=== PATIENT | female | born 1990 | race Caucasian/White ===

== ENCOUNTER 2017-01-21 06:54 | Emergency (ER) | payer OTHER ==
[~2017-01-21] VITALS: Ht 167.6 cm; Wt 77.2 kg
[~2017-01-21 06:54] MED LIST: ACET-765 PO; ALBU2.5V7 AEROSOL; ALBU8.5H INH; AMIT50TA3 PO; MOME13HF3 INH
[2017-01-21 06:57] VITALS: TEMP 98.1; Ht 167.6 cm; Wt 77.2 kg
[2017-01-21] MEDS ORDERED: NORMAL SALINE 1,000 ML IV ONE (07:11)
--- NOTE | 2017-01-21 07:11 | ERPDOC ---
Departure Disposition Decision Date: Jan 21, 2017 Disposition Decision Time: 08:00 Disposition: 01 DISCHARGED HOME, SELF-CARE Impression Impression Impression: Primary Impression: Migraine headache without aura Severity: Moderate Condition: Improved Seen By: Physician only Referrals: KEIRA RAMESH (Family) Patient Instructions: Migraine Headache (ED) Problems/Meds/Labs Reviewed?: Yes Medications reviewed and manag: Yes Additional Instructions: Increase fluids today to hydrate. Please follow up with your primary care provider. Follow up care ordered?: Yes Mental Status: Alert, Oriented HPI - Headache General Chief Complaint: Headache Stated Complaint: MIGRAINE Time Seen by Provider: 07:02 HPI - Headache Initial Comments 26-year-old female presents with the worst headache of her life. Pain is 10 out of 10. She's had this for a couple of days now, she was given Toradol and Phenergan in the clinic which did not work for her. She states that she has had medications here before that don't work and she would like to try something different. She recently switched primary care providers to Dr. Fernando. She states she has severe nausea right now. And that light hurts her eyes. Allergies: Coded Allergies: No Known Allergies (Unverified , 01/21/17) Past History Past Medical History ENMT: sinusitis Respiratory: asthma GI: GERD Female: UTI Neurological: headaches, migraines Psychological: anxiety, depression Surgical History Reproductive/: , hysterectomy, tubal ligation Joint: knee Family History Family PMH: FOUND: CAD, cancer, diabetes, migraines Vaccines Hx Influenza Vaccination: No Hx Pneumococcal Vaccination: No Hx Tetanus Diptheria: Yes (2002) Hx Tetanus, Diptheria, Pertuss: Yes (11/14/13) Social History Substance Use Type: does not use Alcohol Intake: none Sexuality: male partner Record Review Pertinent history updated: Yes Review of Systems Constitutional Constitutional: insomnia Eyes General: see HPI Neurological General: see HPI All other Systems All Other Systems: Reviewed and Negative Physical Exam General General Nourishment: well nourished, well developed, appears stated age Distress Description Patient lying in bed with her eyes closed Vitals and Pain First Documented Vital Signs Date Time Temp Pulse Resp B/P Pulse Ox O2 Delivery O2 Flow Rate FiO2 01/21/17 06:57 98.1 76 18 120/59 96 Room Air Weight: Kilograms: 77.200 Height (feet): 5 Height (inches): 6.00 Triage Pain Scale: Normal Exams: Head: Normocephalic w/o trauma Eyes: Pupils are PERRLA w/ EOMI, No scleral icterus, irritation, or foreign bodies noted Chest/Resp: Clear all malhotra, with good airflow, and symmetry bilaterally CV: Regular rate and rhythm, without murmur or gallop, Pulses 2+ all extremities, capillary refill, <2 seconds all ext., no pedal edema noted Neurologic: Patient is alert, and oriented, cranial nerves, motor/sensory/ cerebellar, exams w/o gross deficits, to observation Psychiatric: Patient exhibits, appropriate attention, emotion and affect Differential Diagnoses Considering: CVA - Thrombotic, CVA - Hemorrhagic, Encephalitis, Headache, Headache - Migraine, Headache - Tension/Muscle, Hypertensive Emergency, Meningitis, Sinusitis - Sphenoid, Sinusitis - Maxillary, Temporal Arteritis, Toothache, Vomiting Progress Results/Orders Orders Procedure Category Date Status Time Iv Lock (Ed Only) EDM 01/21/17 Transmitted 07:11 Normal Saline (Normal PHA 01/21/17 Complete Saline Iv) 07:11 Ketorolac (Toradol) PHA 01/21/17 Complete 07:15 Prochlorperazine PHA 01/21/17 Complete (Compazine) 07:15 Orphenadrine (Norflex) PHA 01/21/17 Complete 07:15 Medications Current ED Medications Sodium Chloride (Normal Saline IV) 1,000 ml @ 0 mls/hr Q0M ONCE IV Last administered on 01/21/17 07:30; Start 01/21/17 at 07:11; Stop 01/21/17 at 07:13 ; Status DC Ketorolac Tromethamine (Toradol) 30 mg O ONCE IV Last administered on 07:33; Start 01/21/17 at 07:15; Stop 01/21/17 at 07:16; Status DC Prochlorperazine Edisylate (Compazine) 10 mg O ONCE IV Last administered on 07:33; Start 01/21/17 at 07:15; Stop 01/21/17 at 07:16; Status DC Orphenadrine Citrate (Norflex) 60 mg O ONCE IV Last administered on 01/21/17 07:31; Start 01/21/17 at 07:15; Stop 01/21/17 at 07:16; Status DC Progress Progress Patient given 10 mg of Compazine, 30 mg of Toradol, 60 mg of Norflex IV as well as 1 L of normal saline IV bolus. Symptoms improved. Patient is discharged to follow-up with her primary care provider RAYMUNDO OLIVO MD Jan 21, 2017 07:11
[2017-01-21] MEDS ORDERED: PROCHLORPERAZINE 10mg/2ml INJECTION IV ONE (07:15)
[2017-01-21] MEDS ORDERED: KETOROLAC 30mg/ml INJECTION IV ONE (07:15)
[2017-01-21] MEDS ORDERED: ORPHENADRINE 60mg/2ml INJECTION IV ONE (07:15)
[2017-01-21 08:15] VITALS: BP 93/51; PULSE 82; RESP 16; O2SAT 100
== END 2017-01-21 08:18 | disposition home or self-care (01) ==
LOC: ED 06:54
DX: G43.009 Migraine without aura, not intractable, without status migrainosus (principal)
CPT/HCPCS: 96361; 96374; 96375; 99284; J0780; J1885; J2360; J7030

== ENCOUNTER 2017-01-24 17:53 | Emergency (ER) | payer OTHER ==
[~2017-01-24] VITALS: Ht 167.6 cm; Wt 77.2 kg
--- OUTSIDE RECORDS SUMMARY | 2017-01-24 17:57 | XMS REPORT | Continuity of Care Document ---
Author Author [facility] Organization [facility] Address Unknown Phone Unavailable Support Name Relationship Address Phone DANIE FRIEDMAN MD Caregiver [address] [facility] [place] [address] Unavailable RAYMUNDO OLIVO MD Caregiver [address] [place] [address] Unavailable CARLOS TRUJILLO Next Of Kin [address] [place] [address] Insurance Providers Guarantor Elidia Trujillo Address [address] [place] [id number] Email Payer [employer] Policy Number [id number] Subscriber's Name Carlos Trujillo Relationship 01 Spouse Group Number [id number] Advance Directives Directive Response Recorded Date/Time Advanced Directives Type None 01/30/14 3:06pm Chief Complaint and Reason for Visit Chief Complaint Headache Reason for Visit [id number] Problems Active Problems Medical Problem Onset Date Status Acute gastroenteritis Unknown Acute Acute gastroenteritis Unknown Acute Asthma exacerbation Unknown Acute Biliary colic Unknown Acute Dehydration Unknown Acute Exacerbation of asthma Unknown Acute GERD (gastroesophageal reflux disease) Unknown Acute HEADACHE CONSISTENT WITH MIGRAINE Unknown Acute Head Consistent with Migraine Unknown Acute Head Consistent with Migraine Unknown Acute Hypermotility of intestine Unknown Acute Low back pain Unknown Acute Maxillary sinusitis, acute Unknown Acute Migraine headache Unknown Acute Migraine headache without aura Unknown Acute Migraine headache without aura Unknown Acute Migraine headache without aura Unknown Acute Patient left without being seen Unknown Acute Vomiting Unknown Acute right foot cellulitis Unknown Acute Past Problems Medical Problem Onset Date Abdominal pain Unknown Chronic lower back pain Unknown Diarrhea Unknown Lower back pain Unknown Vomiting Unknown Medications Current Home Medications Medication Dose Units Route Directions Days Qty Instructions Start Date Acetaminophen/Dp-Hydram Hcl (Tylenol P.m. Ex-Str Caplet) 1 Tab Tablet 2 Tab Oral Bedtime as needed for Headache 11/14/13 Albuterol Sulfate 2.5 Mg/3 Ml Vial.neb 2.5 Mg Aerosol Tx. As Needed 11/02/16 Albuterol Sulfate (Proair Hfa 90 Mcg/Actuation) 8.5 Gm Hfa.aer.ad 2 Puff Inhalation Every 4 Hours as needed for Shortness Of Air/Wheezing Amitriptyline Hcl 50 Mg Tablet 100 Mg Oral Bedtime 11/02/16 Mometasone/Formoterol (Dulera 200 Mcg/5 Mcg Inhaler) 13 Gm Hfa.aer.ad 1 Puff Inhalation Twice A Day 11/02/16 Past Home Medications Medication Directions Ordered Status Acetaminophen/Dp-Hydram Hcl (Tylenol P.m. Ex-Str Caplet) 1 Tab Tablet, 2 Tab Oral As Needed 08/26/13 Discontinued Albuterol Sulfate 2.5 Mg/0.5 Ml Vial.neb, As Needed 01/09/12 Discontinued Aripiprazole (Abilify) 5 Mg Tablet, 2.5 Mg Oral Daily 08/25/13 Discontinued Etonogestrel (Implanon) 68 Mg/Implant Implant, 11/30/10 Discontinued Nitrofurantoin/Nitrofuran Mac (Macrobid) 100 Mg Capsule, 100 Mg Oral Twice A Day 01/15/12 Discontinued Ondansetron (Ondansetron Odt) 4 Mg Tab.rapdis, 4 Mg Oral Every 6-8 Hours Prn as needed for Nasal Congestion 10/22/15 Discontinued Penicillin V Potassium 500 Mg Tablet, 500 Mg Oral Three Times A Day 01/15/12 Discontinued Progesterone 50 Mg/Ml Vial, 50 Mg Intramusc Weekly 06/25/12 Discontinued Topiramate (Topamax) 50 Mg Tablet, Daily 07/02/14 Discontinued Topiramate (Topamax) 50 Mg Tablet, 50 Mg Oral Bedtime 08/03/13 Discontinued Vilazodone Hydrochloride (Viibryd) 20 Mg Tablet, 20 Mg Oral Daily 08/25/13 Discontinued Social History Social History Problem Response Recorded Date/Time Onset Date Status Chewing Tobacco Status No 02/26/2014 3:30am Not Applicable Not Applicable Hx Substance Use No 01/21/2017 7:43am Not Applicable Not Applicable Hx Alcohol Use Y OCCASIONAL 01/21/2017 7:43am Not Applicable Not Applicable Has the pt used tobacco in the last 12 months No 08/26/2013 7:58am Not Applicable Not Applicable Tobacco Usage none 07/02/2014 8:57am Not Applicable Not Applicable Query Response Start Date Stop Date Smoking Status Unknown if ever smoked Hospital Discharge Instructions No hospital discharge instructions. Plan of Care Discharge Date 01/21/17 8:18am Disposition 01 DISCHARGED HOME, SELF-CARE Condition at Discharge Improved Instructions/Education Provided Migraine Headache (ED) Prescriptions See Medication Section Referrals KEIRA RAMESH Address: [address] [address] Additional Instructions/Education Increase fluids today to hydrate. Please follow up with your primary care provider. Functional Status No functional status results. Allergies, Adverse Reactions, Alerts No known allergies. Immunizations Query Response on File Recorded Date/Time Hx Influenza Vaccination No 01/24/15 10:33pm Hx Pneumococcal Vaccination No 01/24/15 10:33pm Hx Tetanus, Diptheria, Pertussis Y 11/14/13 01/24/15 10:33pm Hx Influenza Vaccination No 01/24/15 10:33pm Hx Tetanus Diptheria Y 200201/24/15 10:33pm Hx Tetanus, Diptheria, Pertussis Y 11/14/13 01/24/15 10:33pm Influenza Vaccine Hx NOT UP TO DATE 01/21/17 7:43am Vital Signs Acute Vital Signs Vital Response Date/Time Temperature (Fahrenheit) 98.1 deg F (96.8 - 99.1) 01/21/2017 6:57am Temperature (Calculated Celsius) 36.02878 degrees C (36.0 - 37.3) 01/21/2017 6:57am Pulse Rate (adult) 82 bpm (60 - 100) 01/21/2017 8:15am Respiratory Rate 16 breaths/min (10 - 20) 01/21/2017 8:15am O2 Sat by Pulse Oximetry 100 % (90 - 100) 01/21/2017 8:15am Blood Pressure 93/51 mm Hg 01/21/2017 8:15am Height (Feet) 5 feet 01/21/2017 6:57am Height (Inches) 6.00 inches 01/21/2017 6:57am Weight (Kilograms) 77.200 kg 01/21/2017 6:57am Body Mass Index (BMI) 27.0 01/21/2017 6:57am Results No known relevant diagnostic tests, laboratory data and/or discharge summary. Procedures Procedure Status Date Provider(s) Emergency dept visit Completed 11/02/16 Ther/proph/diag inj iv push Completed 12/07/16 Tx/pro/dx inj new drug addon Completed 12/07/16 Tx/pro/dx inj new drug addon Completed 12/07/16 Emergency dept visit Completed 12/07/16 [id number]"INJECTION, PROCHLORPERAZINE, UP TO 10 MG" Completed 12/07/16"INJECTION, DIPHENHYDRAMINE HCL, UP TO 50 MG" Completed 12/07/16"INJECTION, KETOROLAC TROMETHAMINE, PER 15 MG" Completed 12/07/16"INFUSION, NORMAL SALINE SOLUTION , 1000 CC" Completed 12/07/16 Encounters Encounter Location Arrival/Admit Date Discharge/Depart Date Attending Provider Departed Emergency Room [facility] 01/21/17 6:54am 01/21/17 8: 18am RAYMUNDO OLIVO MD Departed Emergency Room [facility] 12/13/16 9:16am 12/13/16 10: 34am RAYMUNDO OLIVO MD Departed Emergency Room [facility] 12/07/16 11:45pm 12/08/16 2: 20am FEBRUARYEVERTON DO Departed Emergency Room [facility] 11/02/16 12:04pm 11/02/16 1: 33pm RAYMUNDO OLIVO MD Recent Diagnosis
[2017-01-24 18:08] VITALS: BP 98/60; PULSE 78; RESP 18; TEMP 98.3; O2SAT 96; Ht 167.6 cm; Wt 77.2 kg
--- NOTE | 2017-01-24 18:50 | NUR ---
PROVIDER Bubba LOCKWOOD WATER TAXI FERRY OPERATOR IN TO SEE PATIENT.
[2017-01-24] MEDS ORDERED: HYOSCYAMINE 0.125 MG SUBLINGUAL TABLET SL ONE (19:00)
[2017-01-24] MEDS ORDERED: PROMETHAZINE 25 MG INJECTION IM ONE (19:00)
--- NOTE | 2017-01-24 19:03 | ERPDOC ---
Departure Disposition Decision Date: Jan 24, 2017 Disposition Decision Time: 19:01 Disposition: 01 DISCHARGED HOME, SELF-CARE Impression Impression Impression: Primary Impression: Nausea & vomiting Vomiting type: unspecified Vomiting Intractability: non-intractable Qualified Codes: R11.2 - Nausea with vomiting, unspecified Additional Impression: Diarrhea Diarrhea type: unspecified type Qualified Codes: R19.7 - Diarrhea, unspecified Severity: Moderate Condition: Stable Seen By: Mid-level only Referrals: DANIE FRIEDMAN MD (Family) Patient Instructions: Acute Diarrhea (ED), Acute Nausea and Vomiting (ED) Problems/Meds/Labs Reviewed?: Yes Medications reviewed and manag: Yes Additional Instructions: Take the Levsin as needed for nausea/vomiting. May use some Imodium as needed for diarrhea if it is severe. Take small frequent sips of clear liquids to help keep hydrated. If any further issues/concerns then return to ER. Follow up care ordered?: Yes Mental Status: Alert Scripts Hyoscyamine Sulfate (Levsin-Sl) 0.125 Mg Tab.subl 1 TAB SL Q4H Y for CRAMPS, #20 TAB 0 Refills Prov: TAMARA LOCKWOOD HARD [employer] D[employer]LL OPERATOR 01/24/17 HPI - Abdominal Pain General Chief Complaint: Nausea,Vomiting,Diarrhea Stated Complaint: POSS FOOD POISON Time Seen by Provider: 18:45 Source: patient History/Exam Limitations: no limitations HPI - Abdominal Pain Initial Comments She ate at [employer] for a late lunch today. About 30 minutes after eating she had onset of abdominal cramping, nausea, and diarrhea. She states that she has not had any vomiting but has had several episodes of diarrhea that is yellow and watery. Also has continuation of her headache from earlier this week. Has not taken any medication for this before coming to ER. Appears in NAD is lying on the cart and texting on the phone. Did run an errand for her to buy him some Cheetos after onset of symptoms as well. Occurred At: home Onset: Gradual Duration: 4-6 hrs Quality: cramping Location: generalized abdomen Radiation: no radiation Activities at Onset: none Associated Symptoms: nausea/vomiting (nausea), DENIES: back pain, chest pain, diaphoresis, fatigue, fever/chills, headache, heartburn, rash, shortness of breath, swelling/mass in abdomen, syncope, weakness Hx of Similar Symptoms: No Allergies: Coded Allergies: cyclobenzaprine (Verified Adverse Reaction, Unknown, MIGRAINE, 01/24/17) Past History Past Medical History ENMT: sinusitis Respiratory: asthma GI: GERD Female: UTI Neurological: headaches, migraines Psychological: anxiety, depression Surgical History Reproductive/: , hysterectomy, tubal ligation Joint: knee Family History Family PMH: FOUND: CAD, cancer, diabetes, migraines Vaccines Hx Influenza Vaccination: No Hx Pneumococcal Vaccination: No Hx Tetanus Diptheria: Yes (2002) Hx Tetanus, Diptheria, Pertuss: Yes (11/14/13) Social History Smoking Status: Never smoker Substance Use Type: does not use Alcohol Intake: none Sexuality: male partner Review of Systems Constitutional Constitutional: DENIES: chills, dizziness, fatigue, fever, weakness Cardiovascular Cardiac: DENIES: chest pain, orthopnea Rhythm/Rate: DENIES: irregular beat, palpitations Pulmonary Respiratory: DENIES: cough, dyspnea, sputum, tachypnea GI Upper Abdomen: nausea, pain, DENIES: vomiting Lower Abdomen: diarrhea, pain, DENIES: constipation Integumentary Skin: DENIES: rash Neurological General: headache, DENIES: numbness, tingling, weakness Physical Exam General General Nourishment: well nourished, well developed, appears stated age, no acute distress, adult General Body Habitus: well groomed Vitals and Pain First Documented Vital Signs Date Time Temp Pulse Resp B/P Pulse Ox O2 Delivery O2 Flow Rate FiO2 01/24/17 18:08 98.3 78 18 98/60 96 Room Air Weight: Kilograms: 77.200 Height (feet): 5 Height (inches): 6.00 Triage Pain Scale: RN VS reviewed by Provider: Yes Normal Exams: ENMT: No facial trauma, nasal exudates, pharyngeal erythema, or exudates are noted Neck: Full range of motion, without adenopathy, JVD, bruits or thyromegaly Chest/Resp: Clear all malhotra, with good airflow, and symmetry bilaterally CV: Regular rate and rhythm, without murmur or gallop, Pulses 2+ all extremities, capillary refill, <2 seconds all ext., no pedal edema noted Abdomen: Bowel sounds positive, soft, non-tender, non-distended, no hepatosplenomegaly, masses or bruits noted Lymphatic: No lymphadenopathy, or lymphedema noted Integumentary: No rashes, hives, or bruising noted Neurologic: Patient is alert, and oriented Psychiatric: Patient exhibits, appropriate attention, emotion and affect Differential Diagnoses Considering: Appendicitis, Dehydration, Food Poisoning, Gastroenteritis, Hyponatremia, Hypokalemia, Hypoglycemia Progress Results/Orders Orders Procedure Category Date Status Time Promethazine PHA 01/24/17 Complete (Phenergan) 19:00 Hyoscyamine PHA 01/24/17 Complete Sublingual (Levsin Sl) 19:00 Medications Current ED Medications Promethazine HCl (Phenergan) 25 mg O ONCE IM Last administered on 01/24/17 19 :06; Start 01/24/17 at 19:00; Stop 01/24/17 at 19:01; Status DC Hyoscyamine Sulfate (Levsin Sl) 0.25 mg O ONCE SL Last administered on 19:06; Start 01/24/17 at 19:00; Stop 01/24/17 at 19:01; Status DC Progress Progress She has had no vomiting and several episodes of diarrhea. Given that she can tolerate PO will treat her nausea here in ER and have her take some Levsin for the abdominal cramping. Wallace soft diet until symptoms have improved. Follow up with her PCP if any new issues/concerns. TAMARA LOCKWOOD APRN Jan 24, 2017 19:03
[2017-01-24] MEDS ORDERED: PROM12.510 PO (19:06)
[2017-01-24] MEDS ORDERED: NAPR500T3 PO (19:06)
[2017-01-24] MEDS ORDERED: DULO60CA56 PO (19:06)
[2017-01-24] MEDS ORDERED: CLON0.5T4 PO (19:06)
[2017-01-24] MEDS ORDERED: DIAZ5TAB4 PO (19:06)
[2017-01-24] MEDS ORDERED: OXYC-541 PO (19:06)
[2017-01-24] MEDS ORDERED: HYOS0.124 SL (19:12)
== END 2017-01-24 19:21 | disposition home or self-care (01) ==
LOC: ED 17:53
DX: R10.84 Generalized abdominal pain (principal); R11.2 Nausea with vomiting, unspecified; R19.7 Diarrhea, unspecified
CPT/HCPCS: 96372; 99283; J2550

== ENCOUNTER 2017-02-01 12:31 | Emergency (ER) | payer OTHER ==
[~2017-02-01] VITALS: Ht 167.6 cm; Wt 79.4 kg
[~2017-02-01 12:31] MED LIST changes: -AMIT50TA3 PO; +CLON0.5T4 PO; +DIAZ5TAB4 PO; +DULO60CA56 PO; +HYOS0.124 SL; +NAPR500T3 PO; +OXYC-541 PO; +PROM12.510 PO
[2017-02-01 12:33] VITALS: Ht 167.6 cm; Wt 79.4 kg
--- OUTSIDE RECORDS SUMMARY | 2017-02-01 12:35 | XMS REPORT | Continuity of Care Document ---
Author Author [facility] Organization [facility] Address Unknown Phone Unavailable Support Name Relationship Address Phone DANIE FRIEDMAN MD Caregiver [address] [facility] [place] [address] Un[address] MONTEIRO MD Caregiver [address] [facility] [place] [address] Unavailable CARLOS TRUJILLO Next Of Kin [address] [place] [address] Insurance Providers Guarantor Elidia Trujillo Address [address] [place] [address] Email Payer [employer] Policy Number [id number] Subscriber's Name AnamAakash macleón Gagnon Relationship 01 Spouse Group Number [id number] Advance Directives Directive Response Recorded Date/Time Advanced Directives Type None 01/30/14 3:06pm Chief Complaint and Reason for Visit Chief Complaint Nausea,Vomiting,Diarrhea Reason for Visit Nausea & vomiting Diarrhea Problems Active Problems Medical Problem Onset Date [...] Chronic lower back pain Unknown Diarrhea Unknown Diarrhea Unknown Lower back pain Unknown Nausea & vomiting Unknown Vomiting Unknown Medications Current Home Medications Medication Dose Units Route Directions Days Qty Instructions Start Date Acetaminophen/Dp-Hydram Hcl (Tylenol P.m. Ex-Str Caplet) 1 Tab Tablet 2 Tab Oral Bedtime as needed for Headache 11/14/13 Albuterol Sulfate 2.5 Mg/3 Ml Vial.neb 1 Vial Aerosol Tx. As Needed 11/02/16 Albuterol Sulfate (Proair Hfa 90 Mcg/Actuation) 8.5 Gm Hfa.aer.ad 2 Puff Inhalation As Needed 12/08/16 Clonazepam 0.5 Mg Tablet 0.5 Mg Oral Twice A Day as needed for Anxiety 01/24/17 Diazepam 5 Mg Tablet 5 Mg Oral Three Times A Day as needed for Prn Orders 01/24/17 Duloxetine Hcl 60 Mg Capsule.dr 120 Mg Oral Bedtime 01/24/17 Hyoscyamine Sulfate (Levsin-Sl) 0.125 Mg Tab.subl 1 Tab Sublingual Every 4 Hours as needed for Cramps 20 Tablet 01/24/17 Mometasone/Formoterol (Dulera 200 Mcg/5 Mcg Inhaler) 13 Gm Hfa.aer.ad 1 Puff Inhalation Twice A Day 11/02/16 Naproxen 500 Mg Tablet 500 Mg Oral Twice A Day as needed for Pain 01/24/17 Oxycodone Hcl/Acetaminophen (Oxycodone-Acetaminophen 5-325) 5-325 Tablet 1 Tab Oral Every 4-6 Hours as needed for Pain 01/24/17 Promethazine Hcl 12.5 Mg Tablet 12.5 Mg Oral Three Times A Day as needed for Nausea &/Or Vomiting 01/24/17 Past Home Medications Medication Directions Ordered Status [...] discharge instructions. Plan of Care Discharge Date 01/24/17 7:21pm Disposition 01 DISCHARGED HOME, SELF-CARE Condition at Discharge Stable Instructions/Education Provided Acute Nausea and Vomiting (ED) Acute Diarrhea (ED) Prescriptions See Medication Section Referrals DANIE FRIEDMAN MD Address: [address] [place] [address] [place] [address] Additional Instructions/Education Take the Levsin as needed for nausea/ vomiting. May use some Imodium as needed for diarrhea if it is severe. Take small frequent sips of clear liquids to help keep hydrated. If any further issues/concerns then return to ER. Care Plan and Goals Physician Care Plan Problem:Vomiting, Diarrhea Goal: Follow up with primary care provider Instructions: Take medications and follow care plan as discussed/written Functional Status No functional status results. Allergies, Adverse Reactions, Alerts Allergen Type Severity Reaction Status Last Updated Cyclobenzaprine Adverse Reaction Unknown MIGRAINE Active 01/24/17 Immunizations Query Response on File Recorded Date/Time [...] Vital Signs Vital Response Date/Time Temperature (Fahrenheit) 98.3 deg F (96.8 - 99.1) 01/24/2017 6:08pm Temperature (Calculated Celsius) 36.38257 degrees C (36.0 - 37.3) 01/24/2017 6:08pm Pulse Rate (adult) 78 bpm (60 - 100) 01/24/2017 6:08pm Respiratory Rate 18 breaths/min (10 - 20) 01/24/2017 6:08pm O2 Sat by Pulse Oximetry 96 % (90 - 100) 01/24/2017 6:08pm Blood Pressure 98/60 mm Hg 01/24/2017 6:08pm Height (Feet) 5 feet 01/24/2017 6:08pm Height (Inches) 6.00 inches 01/24/2017 6:08pm Weight (Kilograms) 77.200 kg 01/24/2017 6:08pm Body Mass Index (BMI) 27.0 01/24/2017 6:08pm Results No known relevant diagnostic tests, laboratory data and/or discharge summary. Procedures Procedure Status Date Provider(s) Emergency dept visit Completed 11/02/16 Ther/proph/diag inj iv push Completed 12/07/16 Tx/pro/dx inj new drug addon Completed 12/07/16 Tx/pro/dx inj new drug addon Completed 12/07/16 Emergency dept visit Completed 12/07/16121181"INJECTION, PROCHLORPERAZINE, UP TO 10 MG" Completed 12/07/16135040"INJECTION, DIPHENHYDRAMINE HCL, UP TO 50 MG" Completed 12/07/16137817"INJECTION, KETOROLAC TROMETHAMINE, PER 15 MG" Completed 12/07/16676734"INFUSION, NORMAL SALINE SOLUTION , 1000 CC" Completed 12/07/16 Hydrate iv infusion add-on Completed 01/21/17 Ther/proph/diag inj iv push Completed 01/21/17 Tx/pro/dx inj new drug addon Completed 01/21/17 Tx/pro/dx inj new drug addon Completed 01/21/17 Emergency dept visit Completed 01/21/17985780"INJECTION, PROCHLORPERAZINE, UP TO 10 MG" Completed 01/21/17684741"INJECTION, KETOROLAC TROMETHAMINE, PER 15 MG" Completed 01/21/17"INJECTION, ORPHENADRINE CITRATE, UP TO 60 MG" Completed 01/21/17"INFUSION, NORMAL SALINE SOLUTION , 1000 CC" Completed 01/21/17 Encounters Encounter Location Arrival/Admit Date Discharge/Depart Date Attending Provider Departed Emergency Room [facility] 01/24/17 5:53pm 01/24/17 7: 21pm LANE MONTEIRO MD Departed Emergency Room [facility] 01/21/17 6:54am 01/21/17 8: 18am RAYMUNDO OLIVO MD Departed Emergency Room [facility] 12/13/16 9:16am 12/13/16 10: 34am RAYMUNDO OLIVO MD Departed Emergency Room [facility] 12/07/16 11:45pm 12/08/16 2: 20am FEBRUARYEVERTON DO Departed Emergency Room [facility] 11/02/16 12:04pm 11/02/16 1: 33pm RAYMUNDO OLIVO MD Recent Diagnosis
--- NOTE | 2017-02-01 12:47 | ERPDOC ---
Departure Disposition Decision Date: Feb 01, 2017 Disposition Decision Time: 13:50 (EMIL HERNANDEZ APRN) Disposition: 01 DISCHARGED HOME, SELF-CARE Impression Impression (EMIL HERNANDEZ APRN) Impression: Primary Impression: HEADACHE CONSISTENT WITH MIGRAINE Severity: Moderate (EMIL HERNANDEZ APRN) Condition: Improved Seen By: Mid-level only (EMIL HERNANDEZ APRN) Referrals: DANIE FRIEDMAN MD (Family) Patient Instructions: Migraine Headache (ED) Problems/Meds/Labs Reviewed?: Yes Medications reviewed and manag: Yes (EMIL HERNANDEZ APRN) Additional Instructions: Rest in dark room. Avoid any noise or sounds that exacerbate your FLORES. You may insert 1 compazine rectal suppository and rectum every 6 hours as needed for nausea and vomiting. Follow treatment plan. Follow as needed with your PCP. Follow up care ordered?: Yes Mental Status: Alert (EMIL HERNANDEZ APRN) Scripts Prochlorperazine Maleate (Compazine) 25 Mg Supp.rect 1 SUPP RECTALLY Q6HPRN for NAUSEA &/OR VOMITING, #10 Prov: EMIL HERNANDEZ APRN 02/01/17 HPI - Headache General Chief Complaint: Headache Stated Complaint: MIGRAINE Time Seen by Provider: 12:39 Source: patient (EMIL HERNANDEZ APRN) Time Seen by Provider: 12:39 (JACKIE CADE DO) HPI - Headache Initial Comments 26-year-old female presents to ER with headache consistent with usual migraine headache which started yesterday. Patient reports headache is over the left frontal area. States she has taken Tylenol which has not helped her headache. Patient has had multiple emesis and reports nausea at this time. Patient denies fever, chills, rhinorrhea, sinus congestion, neck pain/stiffness, blurred vision/vision changes or ataxia. Patient is scheduled to see Dr. Paige for workup for migraines in April. Patient states that as soon as they are able to get her into Dr. Paige. Pain Scale: Now: 9/10 Severity/Quality: constant, throbbing Location: frontal (left) Prior Headaches/Recent Trauma: frequent headaches Associated Symptoms: nausea/vomiting, DENIES: confusion, facial pain, fatigue, fever/chills, flushing, loss of consciousness, nasal congestion, nasal drainage , numbness in legs/feet, rash, seizures, sinus infection, stiff neck, vision changes, weakness (EMIL HERNANDEZ ARABIC TEACHER) Allergies: Coded Allergies: cyclobenzaprine (Verified Adverse Reaction, Unknown, MIGRAINE, 02/01/17) Past History Past Medical History Metabolic: DENIES: diabetes ENMT: sinusitis Cardiac: DENIES: angina Respiratory: asthma GI: GERD Female: UTI Neurological: headaches, migraines Musculoskeletal: DENIES: rheumatoid arthritis Hematologic: DENIES: anemia Psychological: anxiety, depression (EMIL HERNANDEZ ARABIC TEACHER) Surgical History Reproductive/: , hysterectomy, tubal ligation Joint: knee (EMIL HERNANDEZ APRN) Family History Family PMH: FOUND: CAD, cancer, diabetes, migraines (EMIL HERNANDEZ APRN) Vaccines Hx Influenza Vaccination: No Hx Pneumococcal Vaccination: No Hx Tetanus Diptheria: Yes (2002) Hx Tetanus, Diptheria, Pertuss: Yes (11/14/13) (EMIL HERNANDEZ APRN) Social History Substance Use Type: does not use Alcohol Intake: none Sexuality: male partner (EMIL HERNANDEZ APRN) Review of Systems Constitutional Constitutional: DENIES: chills, dizziness, fever, weakness (EMIL HERNANDEZ ARABIC TEACHER) Eyes General: DENIES: erythema, exudate Lids/Accessories: DENIES: erythema, swelling (EMIL HERNANDEZ ARABIC TEACHER) ENMT Ears: DENIES: pain Hearing: DENIES: hearing loss Sinuses: DENIES: congestion, rhinorrhea Mouth/Throat: DENIES: sore throat Jaw: pain (mild pain over left TMJ) (EMIL HERNANDEZ ARABIC TEACHER) Cardiovascular Cardiac: DENIES: chest pain, murmur Rhythm/Rate: DENIES: palpitations (EMIL HERNANDEZ ARABIC TEACHER) Pulmonary Respiratory: DENIES: cough, dyspnea (EMIL HERNANDEZ ARABIC TEACHER) GI Upper Abdomen: DENIES: nausea, pain, vomiting Lower Abdomen: DENIES: diarrhea, pain (EMIL HERNANDEZ ARABIC TEACHER) General: DENIES: dysuria, pain (EMIL HERNANDEZ A ARABIC TEACHER) Musculoskeletal General: DENIES: joint pain, pain, tenderness (EMIL HERNANDEZ ARABIC TEACHER) Integumentary Skin: DENIES: color change, itching, rash (EMIL HERNANDEZ ARABIC TEACHER) Neurological General: headache, DENIES: ataxia, change in strength, numbness, paralysis/ paresis, weakness (PHILIP HERNANDEZS A ARABIC TEACHER) Psychiatric Psychiatric: DENIES: anxiety, depression, nervousness (PHILIP HERNANDEZS A ARABIC TEACHER) Physical Exam General General Nourishment: well nourished, well developed, no acute distress, adult General Body Habitus: well groomed (PHILIP HERNANDEZS Geoff ARABIC TEACHER) Vitals and Pain First Documented Vital Signs Date Time Temp Pulse Resp B/P Pulse Ox O2 Delivery O2 Flow Rate FiO2 02/01/17 12:33 98.1 87 16 111/67 96 Room Air (JACKIE CADE DO) Vitals and Pain Weight: Kilograms: 79.400 Height (feet): 5 Height (inches): 6.00 Triage Pain Scale: (PHILIP HERNANDEZS Geoff COSTA) Eyes (brief) Eyes Brief: found: EOMI, PERRL (PHILIP HERNANDEZS A ARABIC TEACHER) Eyes Abnormal Movement: NOT FOUND: nystagmus (PHILIP HERNANDEZS A ARABIC TEACHER) ENMT (brief) ENMT Brief: FOUND: TM clear, TM good light reflex, mucosa moist, NOT FOUND: nasal exudate, nasal swelling, pharnyx erythema (PHILIP HERNANDEZS A ARABIC TEACHER) ENMT Jaw: FOUND: tenderness (mild TTP over left TMJ) (PHILIP HERNANDEZS A ARABIC TEACHER) Neck (brief) Neck: FOUND: trachea midline, NOT FOUND: adenopathy, spasm, tenderness, thyromegaly (PHILIP HERNANDEZS A ARABIC TEACHER) Respiratory (brief) Respiratory: FOUND: clear all malhotra, equal bilaterally, symmetrical (PHILIP HERNANDEZS A ARABIC TEACHER) Cardiovascular (brief) Cardiac: FOUND: regular rate, regular rhythm (PHILIP HERNANDEZS A ARABIC TEACHER) Abdomen (brief) Abdominal Brief: FOUND: bowel normo active x4, soft, NOT FOUND: distended, tender (PHILIP HERNANDEZS A ARABIC TEACHER) Musculoskeletal (brief) Musculoskeletal Brief: NOT FOUND: deformity, tenderness (DAVIDEMIL A ARABIC TEACHER) Integumentary (brief) Integumentary Brief: FOUND: dry, pink, warm (PHILIP HERNANDEZS A ARABIC TEACHER) Neurologic (brief) Neurological Brief: FOUND: CN w/o gross def to obs (PHILIP HERNANDEZS A ARABIC TEACHER) Neurologic Cranial Nerves: NOT FOUND: facial asymmetry Motor : Motor Location: foot extension, foot flexion, operations research analyst strength Motor Degree: 5 Sensation: FOUND: soft touch intact x4 ext Cerebellar: FOUND: tandem walk DTR's : DTR Location: Triceps, Patellar DTR Grade: 2+ (EMIL HERNANDEZ APRN) Psychiatric (brief) Psychiatric Brief: FOUND: alert, normal affect, oriented (EMIL HERNANDEZ APRN ) Differential Diagnoses Considering: Dental Caries, Headache - Migraine, Headache - Tension/Muscle, Sinusitis - Frontal, TMJ, Viral Syndrome (EMIL HERNANDEZ APRN) Progress Results/Orders Orders Procedure Category Date Status Time Iv Lock (Ed Only) EDM 02/01/17 Transmitted 12:51 Normal Saline (Normal PHA 02/01/17 Complete Saline Iv) 13:00 Prochlorperazine PHA 02/01/17 Complete (Compazine) 13:00 Ketorolac (Toradol) PHA 02/01/17 Complete 13:00 Diphenhydramine PHA 02/01/17 Complete (Benadryl) 13:00 (JACKIE CADE DO) Medications Current ED Medications Sodium Chloride (Normal Saline IV) 1,000 ml @ 0 mls/hr Q0M ONCE IV Last administered on 02/01/17 13:19; Start 02/01/17 at 13:00; Stop 02/01/17 at 13:01 ; Status DC Prochlorperazine Edisylate (Compazine) 10 mg O ONCE IV Last administered on 13:23; Start 02/01/17 at 13:00; Stop 02/01/17 at 13:01; Status DC Ketorolac Tromethamine (Toradol) 30 mg O ONCE IV Last administered on 13:21; Start 02/01/17 at 13:00; Stop 02/01/17 at 13:01; Status DC Diphenhydramine HCl (Benadryl) 50 mg O ONCE IV Last administered on 02/01/17 13:26; Start 02/01/17 at 13:00; Stop 02/01/17 at 13:01; Status DC (JACKIE CADE DO) Progress Progress Patient reports her headache is mostly gone as well as her nausea. I discussed treatment plan, close follow up with PCP and return precautions. I also suggested patient call Dr. Paige office and see if they have a cancelation list incase she can get in sooner than April for evaluation of her migraine headaches. (EMIL HERNANDEZ APRN) EMIL HERNANDEZ APRN Feb 01, 2017 12:47 JACKIE CADE DO Feb 01, 2017 16:00
--- NOTE | 2017-02-01 12:48 | NUR ---
JULISSA HERNANDEZ APRN AT BEDSIDE.
[2017-02-01] MEDS ORDERED: PROCHLORPERAZINE 10mg/2ml INJECTION IV ONE (13:00)
[2017-02-01] MEDS ORDERED: NORMAL SALINE 1,000 ML IV ONE (13:00)
[2017-02-01] MEDS ORDERED: KETOROLAC 30mg/ml INJECTION IV ONE (13:00)
[2017-02-01] MEDS ORDERED: DiphenhydrAMINE 50 MG/ML INJECTION IV ONE (13:00)
--- NOTE | 2017-02-01 13:15 | NUR ---
EDUCATION PT INSTRUCTED REGARDING ORDERS: IVL WITH NS AND MEDICATION. UNDERSTANDING VERBALIZED. PT SITTING UPRIGHT IN BED, USING PHONE PRIOR TO EDUCATION.
--- NOTE | 2017-02-01 13:30 | NUR ---
ASSESSMENT PT REPORTS HEADACHE L TEMPORAL AREA. PT THUAN VISUAL DISTURBANCES, LIGHTS DIMMED FOR COMFORT.
[2017-02-01] MEDS ORDERED: PROC25SU32 RECTALLY (14:13)
--- NOTE | 2017-02-01 14:18 | NUR ---
IV IVL DC'D WITH CATH INTACT
[2017-02-01 14:20] VITALS: BP 110/62; PULSE 76; RESP 16; TEMP 98.1; O2SAT 99
--- NOTE | 2017-02-01 14:20 | NUR ---
DISMISSAL DISMISSAL INSTRUCTIONS WITH RX X1. NO FURTHER QUESTIONS AT THIS TIME. PT LEFT DEPARTMENT AMBUALTORY
== END 2017-02-01 14:20 | disposition home or self-care (01) ==
LOC: ED 12:31
DX: R51 Headache (principal); R11.2 Nausea with vomiting, unspecified
CPT/HCPCS: 96361; 96374; 96375; 99284; J0780; J1200; J1885; J7030